=== PATIENT | male | born 1980 | race Caucasian/White ===

== ENCOUNTER 2023-04-04 14:31 | Emergency (ER) | payer OTHER ==
--- NOTE | 2023-04-04 14:51 | ERPHSYRPT ---
- History of Present Illness Time Seen by Provider: 04/04/23 14:51 Source: patient Exam Limitations: no limitations Physician History: This is a right-handed 42-year-old white male while at work had a piece of wood dropped and smashed his left ring finger. Patient went to [facility] and they sent him here for further evaluation management. Patient states that he has had a tetanus injection less than 1 year ago. Timing/Duration: today Quality: painful Severity: moderate Location: hands (Left) Associated Symptoms: denies symptoms Allergies/Adverse Reactions: No Known Drug Allergies Allergy (Verified 04/04/23 15:00) Travel Risk - International Travel Have you traveled outside of the country in past 3 weeks: No - Coronavirus Screening Are you exhibiting any of the following symptoms?: No Close contact with a COVID-19 positive Pt in past 14-21 Days: No - Review of Systems Constitutional: No Symptoms Eyes: No Symptoms Ears, Nose, & Throat: No Symptoms Respiratory: No Symptoms Cardiac: No Symptoms Abdominal/Gastrointestinal: No Symptoms Genitourinary Symptoms: No Symptoms Musculoskeletal: Injury (Left ring finger distal portion of digit with lacer ation.) Skin: Other (Laceration distal left) Neurological: No Symptoms ( ring finger) Psychological: No Symptoms Endocrine: No Symptoms Hematologic/Lymphatic: No Symptoms Immunological/Allergic: No Symptoms All Other Systems: Reviewed and Negative - Past Medical History Pertinent Past Medical History: No - Past Surgical History Past Surgical History: Yes - Nursing Vital Signs Nursing Vital Signs: Initial Vital Signs Temperature 98.6 F 04/04/23 14:54 Pulse Rate 90 04/04/23 14:54 Respiratory Rate 20 04/04/23 14:54 Blood Pressure 169/100 04/04/23 14:54 O2 Sat by Pulse Oximetry 96 04/04/23 14:54 Pain Scale Pain Intensity 0 - Physical Exam General Appearance: no apparent distress, alert, anxiety Eye Exam: PERRL/EOMI, eyes nml inspection Ears, Nose, Throat Exam: normal ENT inspection, moist mucous membranes Neck Exam: normal inspection, non-tender, supple, full range of motion Respiratory Exam: airway intact, No chest tenderness, No respiratory distress Gastrointestinal/Abdomen Exam: No tenderness Rectal Exam: not done Back Exam: normal inspection, normal range of motion, No CVA tenderness, No vertebral tenderness Extremity Exam: normal range of motion, pelvis stable, swelling (Distal left ring finger), tenderness (Distal left ring finger with contusion left ring finger nail and distal fat pad with a laceration but skin island intact.) Neurologic Exam: alert, oriented x 3, cooperative, 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 tested, normal mood/affect, nml cerebellar function, nml station & gait, sensation nml Skin Exam: normal color, warm, dry, laceration Lymphatic Exam: No adenopathy SpO2 Interpretation: normal O2 Delivery: Room Air Procedures - Laceration/Wound Repair Left Volar Finger Time of Procedure: 15:50 Wound Location: Left, hand (Ring finger) Wound Length (cm): 2 Wound's Depth, Shape: superficial, contused tissue (Distal left ring finger skin pad tacked down but lacerated in a U-shaped fashion.) Wound Explored: clean (Wound explored in a bloodless field to base without) Irrigated: Yes ( evidence of foreign body) Hibiclens Prep: Yes Anesthesia: 1% Lidocaine (2 mL total) Wound Repaired With: Steri-strips, Dermabond (And benzo) - Course Nursing assessment & vital signs reviewed: Yes Ordered Tests: Active Orders 24 hr Category Date Time Status FINGER(S) Stat Exams 04/04/23 15:02 Taken - Progress Progress: improved Progress Note: 04/04/23 16:16 X-ray left ring finger shows distal tuft fracture with minimal displacement. This patient's medical issue is 1 of low complexity. The level of complexity and the work-up performed is based on the review of the patient's past medical history, review of the patient's medication list, review of the patient's drug allergy list, history of present illness and physical findings on examination. This patient has a skin flap laceration that shows the island of skin attached without appear flap. There is injury to the nail but it is more of a contusion rather than a avulsion. Patient condition will be treated as though there is an open finger fracture and will place him on Keflex antibiotics for 7 days. Pressure dressing was applied after cleansing the site. We repaired the laceration and tacked the flap down with benzoin, Dermabond glue and half-inch Steri-Strips as well as a pressure dressing which she will keep in place until the evening of 04/05/2023. Counseled pt/family regarding: diagnosis, need for follow-up, rad results Medical Desision Making - Independent Historian Additional History obtained from: Spouse - Diagnostic Testing Diagnostic test were ordered, analyzed, and reviewed by me: Yes Radiological Interpretation: Interpreted by me - Risk of complications The pt has a mod risk of morbidity or mortality based on: Need for prescription drug management - Departure Departure Disposition: Home Clinical Impression: Finger fracture, left, Laceration of left ring finger Condition: Stable Critical Care Time: No Additional Instructions: Keep current bandage in place until the evening of 04/05/2023. At that time, may remove the top dressing and leave the Steri-Strips in place until they fall off on their own in approximately 5 to 7 days. Do not pull the Steri-Strips off. After he remove the dressing on the evening of 04/05/2023 you may leave the Steri- Strips in place and may let running water run over the site. You can do this every day thereafter. Blot dry use a hairdryer to dry the site and rebandaged the area changing only the bandage he replace daily. You may trim the Steri- Strips each day. Take your antibiotics as prescribed. Follow-up with your primary care provider for further evaluation management. Prescriptions: Oxycodone HCl/Acetaminophen [Percocet 5-325 mg Tablet] 1 each PO Q8H PRN PRN #6 tablet MDD 3 PRN Reason: Moderate To Severe Pain Cephalexin Mh 500 mg [Keflex 500 mg] 500 mg PO TID #21 cap
--- NOTE | 2023-04-04 16:27 | XRAY ---
Indication: Pain/laceration following crush injury. Comparison: None 3 view left 4th finger demonstrates minimally displaced tuft fracture with adjacent soft tissue swelling and anterior laceration. No other bony, articular, or soft tissue abnormalities.
[2023-04-04 16:50] VITALS: BP 131/83; PULSE 77; O2SAT 96
== END 2023-04-04 16:40 | disposition home or self-care (01) ==
LOC: ED 14:31
DX: S62.635B Displaced fracture of distal phalanx of left ring finger, initial encounter for open fracture (principal); W20.8XXA Other cause of strike by thrown, projected or falling object, initial encounter; Y99.0 Civilian activity done for income or pay; Z79.891 Long term (current) use of opiate analgesic
CPT/HCPCS: 12001; 73140; 99283